=== PATIENT | female | born 1950 | race Asian ===

== ENCOUNTER → 2017-09-04 | Outpatient (RCR) | payer OTHER | END | disposition home or self-care (01) | LOC: PTY 08-12 08:00 | DX: M75.41 Impingement syndrome of right shoulder (principal) | CPT/HCPCS: 97110; 97140; 97162; G0283 ==

== ENCOUNTER 2017-09-11 12:45 | Outpatient (RCR) | payer OTHER | END 2017-10-05 | disposition home or self-care (01) | LOC: PTY 12:45 | DX: M75.41 Impingement syndrome of right shoulder (principal) | CPT/HCPCS: 97110; 97140; G0283 ==